=== PATIENT | female | born 1940 | race Caucasian/White ===

== ENCOUNTER 2016-12-21 06:28 | Inpatient (IN) | payer OTHER, BC ==
[2016-11-22 13:44] VITALS: BMI 31.0
--- NOTE | 2016-11-22 14:18 | PAT Medication Instructions ---
Service Date November 22, 2016. Current Home Medication List Aspirin (Aspirin Tab-Chewable *), 81 MG PO 3XWEEK Calcium Carbonate (Tums), 2 TAB PO QPM Cholecalciferol (Vitamin D), 1,000 INTER.UNIT PO QPM Ibuprofen (Advil), 400 MG PO PRN Potassium Chloride Pwd (Klor-Con Pwd), 20 MEQ PO QPM Timolol Maleate (Timolol 0.5% Oph Soln 15 Ml), 1 DROP OPB QAM Triamterene/Hctz (Maxzide 75MG/50MG), 1 TAB PO QPM Medication Instructions For Your Scheduled Surgery - Check with surgeon for instructions: Ibuprofen (Advil), 400 MG PO PRN - Take the following medications the morning of surgery with a sip of water: Timolol Maleate (Timolol 0.5% Oph Soln 15 Ml), 1 DROP OPB QAM - Take the following medications as scheduled the night before surgery: Potassium Chloride Pwd (Klor-Con Pwd), 20 MEQ PO QPM Cholecalciferol (Vitamin D), 1,000 INTER.UNIT PO QPM Calcium Carbonate (Tums), 2 TAB PO QPM Aspirin (Aspirin Tab-Chewable *), 81 MG PO 3XWEEK (okay to continue per surgeon) Triamterene/Hctz (Maxzide 75MG/50MG), 1 TAB PO QPM If you have any questions please call us at [phone] or [phone] or [phone]
--- NOTE | 2016-11-22 14:55 | DIAGNOSTIC IMAGING REPORT ---
CHEST 2 VIEWS ROUTINE CLINICAL HISTORY: pat preoperative evaluation COMPARISON STUDY: 04/22/2011 FINDINGS: The bones soft tissues and hemidiaphragms are normal. The cardiomediastinal silhouette is normal. The lungs are clear. The pulmonary vasculature is normal. IMPRESSION: Negative chest. Electronically signed by: Samson Mcclain M.D. 11/22/2016 2:53 PM Dictated Date/Time: 11/22/2016 2:53 PM
[2016-11-22 15:04] LABS: BASO % 0.9 %; BASO ABS # 0.05 K/uL (0-0.2); COMPLETE YES; EOS % 1.6 %; HEMATOCRIT 43.2 % (37-47); IG% 0.2 %; LYMPH % 31.9 %; LYMPH ABS # 1.82 K/uL (1.2-3.4); MEAN CELL VOLUME 91.3 fL (80-100); MEAN CORPUSCULAR HEMOGLOBIN 30.7 pg (25-34); MEAN CORPUSCULAR HGB CONC 33.6 g/dl (32-36); MONO % 12.3 %; NEUT % 53.1 %; PLATELET COUNT 309 K/uL (130-400); RED BLOOD COUNT 4.73 M/uL (4.2-5.4)
[2016-11-22 15:17] LABS: PARTIAL THROMBOPLASTIN RATIO 1.1; PROTHROMBIN TIME (PATIENT) 10.4 SECONDS (9.0-12.0)
[2016-11-22 15:18] LABS: BLOOD UREA NITROGEN 25 mg/dl (7-18); BUN/CREATININE RATIO 19.4 (10-20); C-REACTIVE PROTEIN < 0.29 mg/dl (0-0.29); CALCIUM 8.7 mg/dl (8.5-10.1); CARBON DIOXIDE 30 mmol/L (21-32); CHLORIDE 102 mmol/L (98-107); GLUCOSE 110 mg/dl (70-99); POTASSIUM 3.3 mmol/L (3.5-5.1); SODIUM 139 mmol/L (136-145)
--- NOTE | 2016-12-14 21:37 | HISTORY & PHYSICAL EXAMINATION ---
DATE OF ADMISSION: 12/21/2016 CHIEF COMPLAINT: Right knee pain. HISTORY OF PRESENT ILLNESS: The patient is a 76-year-old white female who presents for surgical treatment of her right knee. She has a 2-1/2-year history of increasing right knee pain and discomfort. She reports intermittent clicking and locking and occasional giving out on her knee. It can occur spontaneously. She has failed all conservative treatment including various anti-inflammatory medicines. Of note, she had her left knee replaced by Dr. Churchill in 2006 and has done pretty well from this. She did have some problems in the perioperative period. She was frustrated with it. PAST MEDICAL HISTORY: Significant for arthritis. PAST SURGICAL HISTORY: Previous surgeries include: 1. Appendectomy. 2. T&A. 3. Cholecystectomy. 4. Left knee replacement. 5. Cataract surgery. ALLERGIES: IODINE AND BETADINE. CURRENT MEDICINES: Include: 1. Aspirin 81 mg a day. 2. Vitamin D 3 times a week. 3. Potassium. 4. Tums. 5. Diuril. SOCIAL HISTORY: A 76-year-old white female. She is a retired nurse coordinator. She is . Rare alcohol intake. FAMILY HISTORY: Significant for heart disease. REVIEW OF SYSTEMS: Negative for diabetes, neurologic problems, vascular problems, bleeding disorders. Denies any chest pain or shortness of breath. No history of DVT or PE. PHYSICAL EXAMINATION: GENERAL: Reveals a healthy, pleasant elderly female. She looks to be in good health. HEENT: Benign. NECK: Supple. No lymphadenopathy. LUNGS: Clear to auscultation. HEART: Has a regular rate and rhythm. ABDOMEN: Soft, nontender, nondistended. EXTREMITIES: Grossly neurovascularly intact except as follows: Examination of the right knee reveals the patient walks with a slightly antalgic gait. She has got a varus alignment to her knee. Range of motion is 5-125. No instability. X-RAYS: X-rays of the right knee reviewed. It shows advanced right knee DJD. She has got complete loss of her lateral joint space. She has got subchondral sclerosis and osteophytes, particularly on the lateral side of her knee. She has got patellofemoral disease as well. ASSESSMENT: A 76-year-old white female who is 10 years out from left knee replacement with advanced right knee degenerative joint disease. She has failed conservative treatment and would like to have her right knee replaced. PLAN: We will take her to the operating room and do a right total knee replacement. The risks and benefits of this procedure were explained to the patient including but not limited to DVT, PE, , infection, neurological injury, vascular injury, bleeding problem, pain, limited range of motion, stiffness, failure to relieve symptoms, incomplete relief of symptoms, need for further surgery in the future, fracture, leg length inequality, nerve palsy, etc. The patient understands and desires to proceed. Informed consent was obtained. As far as discharge plans, she is planning to be discharged to home using [facility]. Her can assist in her care.
[2016-12-21] VITALS (7 sets, daily range): BP systolic 106–129; BP diastolic 69–83; PULSE 67–78; TEMP 35.9–36.6; O2SAT 94–100; Ht 167.6 cm; Wt 89.0 kg
[~2016-12-21] VITALS: Ht 167.6 cm; Wt 89.0 kg
[~2016-12-21 06:28] MED LIST: ACETAMINOPHEN 500 MG TAB PO SCH; ASPCH81 PO; BUPIVACAINE LIPOSOME 266 MG, BUPIVACAINE/EPINEPHRINE INJ 50 ML, SODIUM CHLORIDE 0.9% PF... INFIL SCH; CALC500C3 PO; CEFAZOLIN 2000 MG/60 ML D5W 60 ML IV SCH; CHOL100010 PO; FAMOTIDINE 20 MG TAB PO SCH; GABAPENTIN 300 MG CAP PO SCH; IBUP-1050 PO; LACTATED RINGER'S 1000ML 1,000 ML IV SCH; METOCLOPRAMIDE HCL 10 MG TAB PO SCH; POTA1POW PO; SCOPOLAMINE 1.5 MG TDSY TD SCH; TMPOPS15 OPB; TRIA75TA53 PO
[2016-12-21] MEDS ORDERED: TRANEXAMIC ACID INJ 1,000 MG in SODIUM CHLORIDE 0.9% 100ML 100 ML IV SCH ×2 (06:30→16:45)
[2016-12-21] MEDS ORDERED: BUPIVACAINE 0.5 % 5 MG/1 ML PF 10ML VIAL ONE (06:33)
[2016-12-21] MEDS ORDERED: BUPIVACAINE 0.25% 30 ML VIAL ONE (06:33)
--- NOTE | 2016-12-21 06:51 | History & Physical Bridge Note ---
H&P Re-Evaluation Bridge Note: I have examined the patient, reviewed the History & Physical and in the interval since the performance of the History & Physical I have noted the following changes of clinical significance: No changes noted
[2016-12-21] MEDS ORDERED: MIDAZOLAM HCL 1 MG/ML 2ML VIAL ONE ×2 (07:14→09:14)
[2016-12-21] MEDS ORDERED: FENTANYL CITRATE INJ 50 MCG/1 ML 2 ML VIAL ONE ×2 (07:15→09:20)
[2016-12-21] MEDS ORDERED: PROPOFOL IV EMULSION 10 MG/ML 20 ML VIAL IV ONE ×2 (07:15→09:39)
[2016-12-21] MEDS ORDERED: ATROPINE SULFATE 0.1 MG/ML 5ML SYR IV PRN (08:15)
[2016-12-21] MEDS ORDERED: ONDANSETRON INJ 2 MG/ML 2 ML VIAL IV PRN ×2 (08:15→11:00)
[2016-12-21] MEDS ORDERED: EpHEDrine SULFATE INJ 50 MG/ML AMP IV PRN (08:15)
[2016-12-21] MEDS ORDERED: BUPIVACAINE/EPINEPHRINE 0.25% 1:200,000 30 ML VIAL ONE (08:50)
[2016-12-21] MEDS ORDERED: BACITRACIN 50000 UNIT VIAL ONE (08:50)
[2016-12-21] MEDS ORDERED: SODIUM CHLORIDE 0.9% PF 50 ML VIAL ONE (08:50)
[2016-12-21] MEDS ORDERED: BUPIVACAINE LIPOSOME 1/3% 266 MG/20 ML VIAL INFIL ONE (08:50)
[2016-12-21] MEDS ORDERED: ONDANSETRON INJ 2 MG/ML 2 ML VIAL ONE (09:39)
[2016-12-21] MEDS ORDERED: EpHEDrine SULFATE INJ 50 MG/ML AMP ONE ×2 (09:45→09:48)
[2016-12-21] MEDS ORDERED: PHENYLEPHRINE HCL INJ 10 MG/ML VIAL ONE (09:48)
--- NOTE | 2016-12-21 10:47 | [facility] Post Operative Brief Note ---
Immediate Operative Summary Operative Date Dec 21, 2016. Pre-Operative Diagnosis Right Knee Advanced Degenerative Joint Disease Post-Operative Diagnosis Right Knee Advanced Degenerative Joint Disease Procedure(s) Performed Right Total Knee Arthoplasty Surgeon Dr. Charles Bulk Sugar Handler Surgeon(s) CHARITO Perez Estimated Blood Loss 50 ml Findings Right Knee DJD Specimens A. Right Knee Bone and Tissue Drains None Anesthesia Spinal + General Complication(s) None Disposition Recovery Room / PACU
[2016-12-21] MEDS ORDERED: ZOLPIDEM TARTRATE 5 MG TAB PO PRN (11:00)
[2016-12-21] MEDS ORDERED: BISACODYL 10 MG SUPP PR PRN (11:00)
[2016-12-21] MEDS ORDERED: HYDROmorphone INJ 0.5 MG/0.5 ML SYR IV PRN (11:00)
[2016-12-21] MEDS ORDERED: TRAMADOL HCL 50 MG TAB PO PRN (11:00)
[2016-12-21] MEDS ORDERED: METOCLOPRAMIDE HCL INJ 5 MG/ML 2 ML VIAL IV PRN (11:00)
[2016-12-21] MEDS ORDERED: MAGNESIUM HYDROXIDE SUSP 30 ML UDC PO PRN (11:00)
--- NOTE | 2016-12-21 11:19 | DIAGNOSTIC IMAGING REPORT ---
RIGHT KNEE 2 VIEWS CLINICAL HISTORY: Degenerative arthritis COMPARISON: None. DISCUSSION: There are postsurgical changes of a total right knee arthroplasty and patellar resurfacing. The femoral and tibial components appear well seated. Overlying skin pa are visualized. There is air within soft tissues consistent with recent surgery. IMPRESSION: Postsurgical changes of a total right knee arthroplasty. Electronically signed by: Jose De Jesus Bartlett M.D. 12/21/2016 11:17 AM Dictated Date/Time: 12/21/2016 11:17 AM
--- NOTE | 2016-12-21 11:32 | OPERATIVE REPORT ---
DATE OF OPERATION: 12/21/2016 SURGEON: Romel Charles MD SENIOR APPLICATION SECURITY CONSULTANT: CHARITO Metcalf PREOPERATIVE DIAGNOSIS: Right knee degenerative joint disease. POSTOPERATIVE DIAGNOSIS: Same. PROCEDURE PERFORMED: Right cemented posterior stabilized total knee arthroplasty. COMPLICATIONS: None. ESTIMATED BLOOD LOSS: 50 mL. FLUID REPLACEMENT: 1000 mL crystalloid fluid replacement. TOURNIQUET TIME: 55 minutes at 300 mmHg. ANESTHESIA: Spinal and subsequent general anesthesia. SPECIMENS: Right knee sent for pathology. OPERATIVE INDICATIONS: The patient is a 76-year-old fairly active female who has had a 2-1/2 to 3 year history of increasing right knee pain and discomfort. She has been through extensive conservative treatment without much relief. She had a left knee replacement in 2006 and done pretty well from this. She elected to proceed with right total knee arthroplasty. OPERATIVE FINDINGS: Operative findings revealed advanced right knee DJD. She had grade 4 [id number] disease in all 3 compartments. She had a valgus alignment to her knee with more extensive disease laterally. She had osteophytes in all 3 compartments. Moderate size effusion. OPERATIVE IMPLANTS: Operative implants consisted of: 1. Biomet Vanguard size 62.5 right posterior stabilized femoral component. 2. Biomet size 67 tibial tray. 3. A 12-mm posterior stabilized polyethylene insert. 4. A 31 x 8 all poly patella. OPERATIVE PROCEDURE: The patient was taken to the operating room, identified and placed on the operating table in the supine position. All contact areas were appropriately padded. IV antibiotics were provided by anesthesia team. A spinal anesthetic and adductor canal block had been provided in the holding area. Perera catheter was placed in sterile fashion. Right thigh tourniquet was then placed and the right lower extremity was then prepped and draped in the usual sterile fashion. The right leg was elevated and exsanguinated with Esmarch and tourniquet was placed at 300 mmHg. An anterior approach to the right knee was then performed through a longitudinal incision centered over the patella. Sharp dissection was carried out through the subcutaneous tissues down to the level of the extensor mechanism. A medial parapatellar arthrotomy incision was made. Some subperiosteal dissection was carried out medially. The fat pad was resected from beneath the patellar tendon. Lateral patellofemoral ligament was released. Patella was everted and knee was flexed. The osteophytes were taken off the distal femur. The ACL and PCL were then released from the distal femur and the tibia subluxated anteriorly. The external tibial alignment jig was then placed in the anterior face of the tibia and adjusted 14 mm medially. Proximal tibial cut was made to remove about 2-3 mm of bone from the medial side. The tibia was sized to a size 67. Of note, the bone was fairly soft. Attention was then drawn to the femur. The distal femur was entered with a sharp drill bit. Intramedullary canal was suctioned. A 5-degree valgus cutting guide was placed and distal femoral cutting block was pinned in place. Distal femoral cut was made to take an additional 3 mm of bone off the distal femur. The knee was then brought out into full extension. I did do a little release of the IT band and the posterolateral capsule to equalize the extension gap. Great care was taken to protect the peroneal nerve at all times. The knee was then flexed again. The sizing guide was placed. The femur was then sized to a size 62.5. We did downsize this slightly. The AP cutting block was pinned parallel to the epicondylar axis, which was 6 degrees of external rotation. The anterior cut, anterior chamfer, posterior cut, and posterior chamfer cuts were made. Box cutting guide was placed and adjusted slightly lateral and the box cut was made. The knee was flexed. The remnants of the medial and lateral menisci were excised. The osteophytes were taken off the posterior aspect of the femur. Trial femoral component was placed. Tibial tray was pinned in maximum external rotation and the drill and stem punch were used to create defect in proximal tibia for the tibial tray. The knee was then trialed and the 12-mm insert fit most appropriately. Attention was then drawn to the patella. The patella was cleaned of all soft tissues. Patella thickness measured 18 mm in thickness and it was cut down to 12. It was sized to a size 31 patella. Lug holes were drilled for the 31 patella. Lateral osteophyte was removed. Patella button was placed. Knee was taken through range of motion and patella tracked nicely with no thumbs test. Attention was then drawn toward placement of permanent components. All trial components were removed. A bone plug was placed in the distal femur to limit blood loss. A double batch of Palacos G cement was mixed. A right size 62.5 posterior stabilized femoral component, 67 tibial tray, a 12-mm posterior stabilized polyethylene insert, and a 31 x 8 all poly patella then cemented in place. The knee was brought out into full extension until cement hardened. A final cement check was then performed. Pericapsular tissues were injected with a total of 100 mL of a combination of 20 mL of Exparel, 30 mL of normal saline, and 50 mL of 0.25% Marcaine with epinephrine. The patient did receive 1 gram of tranexamic acid. The tourniquet was then let down for a tourniquet time of 55 minutes. Hemostasis was assured with use of electrocautery. The extensor mechanism was then closed with a combination of #1 PDS suture and #1 Vicryl suture in a [id number] fashion. Extensor mechanism was checked and found to be intact. Subcutaneous tissues were then closed with 2-0 Dexon suture in a buried interrupted fashion. Skin was closed skin pa. Leg was then cleaned and dried and a sterile dressing of Xeroform, 4 x 4, sterile cast padding and George bandage were applied. The patient then transferred to the recovery room in stable condition. The patient tolerated the procedure well with no complications. All needle and sponge counts were correct at the end of the operation. I attest to the content of the Intraoperative Record and any orders documented therein. Any exception s are noted below.
--- NOTE | 2016-12-21 11:34 | Anesthesiology Progress Note ---
Anesthesia Post Op Note Date & Time Dec 21, 2016 at 11:33 Vital Signs Pain Intensity: 0 Vital Signs Past 12 Hours Date Time Temp Pulse Resp B/P (MAP) Pulse Ox O2 Delivery O2 Flow Rate FiO2 12/21/16 11:22 75 18 96 12/21/16 11:22 75 18 12/21/16 11:21 137/83 12/21/16 11:17 74 18 94 12/21/16 11:17 74 18 12/21/16 11:16 151/80 12/21/16 11:12 77 17 98 12/21/16 11:12 78 17 12/21/16 11:11 137/77 12/21/16 11:08 72 18 99 12/21/16 11:08 72 18 12/21/16 11:06 141/85 12/21/16 11:03 74 18 99 12/21/16 11:03 74 18 12/21/16 11:01 128/74 12/21/16 10:58 77 23 100 12/21/16 10:58 77 23 12/21/16 10:56 130/80 12/21/16 10:54 150/86 12/21/16 10:53 36.0 75 12 150/86 99 Mask 10 12/21/16 10:53 88 16 100 12/21/16 10:53 77 16 12/21/16 07:06 36.6 71 18 111/83 96 Room Air Notes Mental Status: alert / awake / arousable, participated in evaluation Pt Amnestic to Procedure: Yes Nausea / Vomiting: adequately controlled Pain: adequately controlled Airway Patency, RR, SpO2: stable & adequate BP & HR: stable & adequate Hydration State: stable & adequate Neuraxial Anesthesia: was administered, sensory block is resolving Anesthetic Complications: no major complications apparent
[2016-12-21] MEDS: D5W AND 1/2NSS + 20MEQ KCL 1,000 ML IV SCH ×2 (13:11→20:30)
[2016-12-21] MEDS: KETOROLAC TROMETHAMINE 15 MG/ML VIAL IV SCH ×2 (13:45→20:30)
--- NOTE | 2016-12-21 16:02 | PROGRESS NOTE ---
DATE: 12/21/2016 SUBJECTIVE: 76-year-old white female postop from a right knee replacement. She is doing well. She does not have any sensation or pain in either leg yet. Denies any chest pain or shortness of breath. Not feeling dizzy or lightheaded. OBJECTIVE: VITAL SIGNS: Temperature 36.5. Vital signs stable. PHYSICAL EXAMINATION: GENERAL: Reveals a pleasant elderly female. She is sitting up in bed and talking with her . She was clearly dozing off intermittently. LUNGS: Clear to auscultation. HEART: Regular rate and rhythm. ABDOMEN: Soft, nontender, nondistended. EXTREMITIES: Grossly neurovascularly intact except as follows. Examination of the right leg reveals the leg to be well aligned. Dressing is clean, dry and intact. She has no significant sensory or motor function yet. She has brisk refill. X-RAYS: X-rays of the right knee from recovery room were reviewed. It shows a right cemented posterior stabilized total knee arthroplasty. Components looked to be in good position. No signs of problems. ASSESSMENT: 76-year-old white female postop from a right knee replacement, doing well. Pain is controlled. Spinal is still in effect. PLAN: 1. DVT prophylaxis including thigh-high TEDs, SCDs, and aspirin twice a day. 2. PT/OT. Weightbearing as tolerated. Right total knee protocol. 3. Pain control, doing pretty well with current pain regimen. We will obviously have to use additional medicines as the spinal wears off. 4. IV antibiotics x24 hours. 5. Disposition: Plan to discharge to home with some home health once adequately recovered.
[2016-12-21] MEDS: CEFAZOLIN IV 2,000 MG in DEXTROSE 5% 50ML 50 ML IV SCH ×2 (16:51→23:52)
[2016-12-21] MEDS: ACETAMINOPHEN 500 MG TAB PO SCH ×2 (16:53→23:52)
[2016-12-21] MEDS: FERROUS GLUCONATE 324 MG TAB PO SCH (20:26)
[2016-12-21] MEDS: ASPIRIN 325 MG ECTAB PO SCH (20:31)
[2016-12-21] MEDS: DOCUSATE SODIUM 100 MG CAP PO SCH (20:31)
[2016-12-21] MEDS: POTASSIUM CHLORIDE PWD 20 MEQ PACK PO SCH (20:33)
[2016-12-21] MEDS: TRIAMTERENE/HCTZ 37.5/25MG TAB PO SCH (20:34)
[2016-12-21] MEDS: CHOLECALCIFEROL 1000 INTER.UNIT TAB PO SCH (20:37)
[2016-12-21] MEDS: SENNA 8.6 MG TAB PO SCH (20:37)
[2016-12-21] MEDS: CALCIUM CARBONATE 500 MG CHEWABLE PO SCH (20:37)
[2016-12-21] MEDS ORDERED: ULT50X PO (21:34)
[2016-12-21] MEDS ORDERED: FRRG PO (21:34)
[2016-12-21] MEDS ORDERED: ACET-24 PO (21:34)
[2016-12-21] MEDS ORDERED: ASPEC325 PO (21:34)
--- NOTE | 2016-12-21 21:37 | Discharge Instructions ---
Discharge Instructions Date of Service Dec 21, 2016. Admission Reason for Admission: Right Knee Degenerative Joint Disease Discharge Discharge Diagnosis / Problem: Right Knee Replacement Discharge Goals Goal(s): Decrease discomfort, Improve function, Increase independence, Improve disease control, Therapeutic intervention Activity Recommendations Activity Limitations: per Instructions/Follow-up section Weightbearing Status: Right weightbearing . Instructions / Follow-Up Instructions / Follow-Up ACTIVITY RECOMMENDATIONS: Physical Therapy: * You will go to physical therapy three times each week for four to six weeks after your surgery in order to regain your knee range of motion and to retrain your knee to work properly. * It is just as important to make sure you are getting your knee perfectly straight as it is to regain your knee bend. * Taking a pain pill an hour before therapy can help you have a more productive and comfortable therapy session. Home Exercise: * You were shown a series of exercises (heel props, heel slides, etc.) in the hospital. Do these exercises three to four times each day including the exercises you were shown in physical therapy. Walking: * Get up and walk several times each day. For the first four weeks, try not to stand or walk for more than one hour at a time. If you do stand or walk for more than one hour, you will not hurt anything, but your knee and leg will likely swell. * As you feel comfortable, you may change from the walker or crutches to a cane and then to independent walking. MEDICATIONS: New Medicine: * You will likely be taking one or more of these medications: 1. Tramadol - A quick and shorter-acting pain medication. Take one to two tablets every four to six hours to lessen your pain. 2. Iron Sulfate - Take two times each day for the month after surgery to help you replace the blood lost during surgery. 3. Aspirin - Thins your blood to lessen the chance of forming a blood clot. * The most common side effects of pain medicine and iron are nausea and constipation. If nausea or constipation is too much of a problem or if you have any questions about your new medicines or doses, call [facility] at . We will try to help you manage these issues. VERY IMPORTANT TO READ AND REVIEW" Pain: * The immediate post-operative period after knee replacement surgery is often quite painful. * You are given a prescription for pain medicine. You should take it, as directed, when you need it, especially before physical therapy and before going to bed. Pain that interferes with sleep is very common and can last several months. * You will likely need pain medicine for the first four to six weeks. It will not stop all of the pain. The pain will lessen and as you feel better, you may change to milder pain medicine such as Tylenol. * The most common side effects of pain medicine are nausea and constipation, so don't take more than you need. SPECIAL CARE INSTRUCTIONS: TEDs/Elastic Stockings: * The white elastic stockings help limit swelling and prevent blood clots from forming in your legs. The more you wear them, the more they work. * Wear them for six weeks after knee replacement surgery and four weeks after partial knee replacement. Prevention of Infection: * Take antibiotics one hour before any dental cleaning, dental work, urological procedure, gastrointestinal procedure or any invasive surgery in order to prevent your new joint from getting infected. * You may get the antibiotics from the doctor performing the procedure or you may call our office at before and we will call in a prescription to the pharmacy of your choice. Things to Watch For: * Drainage from the incision site that occurs more than one week after your surgery. * Severely increased knee/leg pain or swelling. * Increased redness at the incision site. * Fever above 102 degrees Fahrenheit. * Unusual chest pain or shortness of breath. * Unusual pain or burning with urination. Call [facility] at with any of the above problems or if you have any questions about your medicines or recovery. FOLLOW UP VISIT: Make an appointment to see your doctor for approximately two weeks after surgery for a progress check and staple removal by calling the office at . Current Hospital Diet Patient's current hospital diet: Regular Diet Discharge Diet Recommended Diet: Regular Diet Procedures Procedures Performed: Right Total Knee Arthoplasty Pending Studies Studies pending at discharge: no Medical Emergencies . Who to Call and When: Medical Emergencies: If at any time you feel your situation is an emergency, please call 551 immediately. . Non-Emergent Contact Non-Emergency issues call your: Surgeon . "Provider Documentation" section prepared by Romel Charles. . VTE Core Measure Inpt VTE Proph given/why not?: Other Anticoagulation, T.E.D. Stockings, SCD's
[2016-12-22] MEDS: KETOROLAC TROMETHAMINE 15 MG/ML VIAL IV SCH ×4 (01:46→20:40)
[2016-12-22 03:36] VITALS: BP 110/67; PULSE 73; TEMP 36.6; O2SAT 99
[2016-12-22] MEDS: D5W AND 1/2NSS + 20MEQ KCL 1,000 ML IV SCH (04:49)
[2016-12-22 06:14] LABS: MEAN CELL VOLUME 92.4 fL (80-100); MEAN CORPUSCULAR HEMOGLOBIN 31.5 pg (25-34); MEAN CORPUSCULAR HGB CONC 34.1 g/dl (32-36); MEAN PLATELET VOLUME 9.2 fL (7.4-10.4); PLATELET COUNT 220 K/uL (130-400); RED BLOOD COUNT 3.68 M/uL (4.2-5.4); WHITE BLOOD COUNT 9.85 K/uL (4.8-10.8)
[2016-12-22 06:42] LABS: CALCIUM 8.5 mg/dl (8.5-10.1); CREATININE 0.89 mg/dl (0.60-1.20); POTASSIUM 3.4 mmol/L (3.5-5.1)
--- NOTE | 2016-12-22 07:40 | PROGRESS NOTE ---
DATE: 12/22/2016 DATE: 12/22/2016. SUBJECTIVE: A 76-year-old white female postop day 1 from right knee replacement. She is doing well. Pain is controlled. Denies any chest pain or shortness of breath. Not feeling dizzy or lightheaded. OBJECTIVE: VITAL SIGNS: Temperature 36.6. Vital signs stable. PHYSICAL EXAMINATION: GENERAL: Reveals a pleasant elderly female. She is sitting up in bed and looks pretty comfortable. EXTREMITIES: Examination of the right leg reveals the dressing to be clean, dry and intact. She can dorsiflex and plantarflex her foot appropriately. She is neurologically intact. LABORATORY DATA: Hemoglobin 11.6. Hematocrit 34.0. Electrolytes are stable. ASSESSMENT: A 76-year-old white female postop day 1 from a right knee replacement, doing pretty well. Her pain is controlled. PLAN: 1. DVT prophylaxis including thigh-high TEDs, SCDs, and aspirin twice a day. 2. PT/OT. Weightbearing as tolerated. Right total knee protocol. 3. Pain control. Doing well with current pain regimen. 4. Neurological status. Her nerve function has returned. The spinal has worn off and her nerve function is normal. 5. Disposition. She is planning to be discharged to home with some home health once adequately recovered. 6. Hypokalemia - will supplement K and recheck in am. SEEMA
[2016-12-22] MEDS ORDERED: POTASSIUM CHLORIDE 10 MEQ TABCR PO ONE ×2 (07:45→21:00)
[2016-12-22 07:47] VITALS: PULSE 74; TEMP 36.8; O2SAT 97
--- NOTE | 2016-12-22 08:34 | Anesthesiology Progress Note ---
Anesthesia Post Op Note Date & Time Dec 22, 2016 at 08:33 Vital Signs Pain Intensity: 9.0 Vital Signs Past 12 Hours Date Time Temp Pulse Resp B/P (MAP) Pulse Ox O2 Delivery O2 Flow Rate FiO2 12/22/16 07:47 36.8 74 20 97 Room Air 12/22/16 03:36 36.6 73 16 110/67 (81) 99 Room Air 12/21/16 23:57 Room Air 12/21/16 22:37 36.4 78 16 106/70 (82) 100 Room Air Notes Mental Status: alert / awake / arousable, participated in evaluation Pt Amnestic to Procedure: Yes Nausea / Vomiting: adequately controlled Pain: adequately controlled Airway Patency, RR, SpO2: stable & adequate BP & HR: stable & adequate Hydration State: stable & adequate Anesthetic Complications: no major complications apparent
[2016-12-22] MEDS: ASPIRIN 325 MG ECTAB PO SCH ×2 (08:51→20:42)
[2016-12-22] MEDS: FERROUS GLUCONATE 324 MG TAB PO SCH ×3 (08:51→18:20)
[2016-12-22] MEDS: DOCUSATE SODIUM 100 MG CAP PO SCH ×2 (08:51→20:41)
[2016-12-22] MEDS: TIMOLOL MALEATE 0.5% OP SOLN 5 ML BTL OPB SCH (08:52)
[2016-12-22] MEDS: MULTIVITAMIN TAB PO SCH (08:52)
[2016-12-22] MEDS: ACETAMINOPHEN 500 MG TAB PO SCH ×2 (08:52→15:35)
[2016-12-22] MEDS: PANTOprazole SOD 40 MG TAB PO SCH (08:53)
[2016-12-22 09:45] VITALS: BP 112/72; PULSE 76; O2SAT 96
[2016-12-22 16:02] VITALS: BP 130/78; PULSE 74; TEMP 36.7; O2SAT 97
[2016-12-22] MEDS: TRIAMTERENE/HCTZ 37.5/25MG TAB PO SCH (20:41)
[2016-12-22] MEDS: POTASSIUM CHLORIDE PWD 20 MEQ PACK PO SCH (20:41)
[2016-12-22] MEDS: CALCIUM CARBONATE 500 MG CHEWABLE PO SCH (20:41)
[2016-12-22] MEDS: SENNA 8.6 MG TAB PO SCH ×2 (20:42→20:51)
[2016-12-22] MEDS: CHOLECALCIFEROL 1000 INTER.UNIT TAB PO SCH (20:42)
[2016-12-23 00:06] VITALS: BP 127/90; PULSE 80; TEMP 37; O2SAT 99
[2016-12-23] MEDS: ACETAMINOPHEN 500 MG TAB PO SCH ×2 (00:11→09:23)
[2016-12-23] MEDS: KETOROLAC TROMETHAMINE 15 MG/ML VIAL IV SCH ×2 (02:25→09:29)
[2016-12-23 07:26] VITALS: BP 107/71; PULSE 81; TEMP 36.3; O2SAT 95
[2016-12-23] MEDS: PANTOprazole SOD 40 MG TAB PO SCH (09:00)
[2016-12-23] MEDS: DOCUSATE SODIUM 100 MG CAP PO SCH (09:24)
[2016-12-23] MEDS: FERROUS GLUCONATE 324 MG TAB PO SCH (09:24)
[2016-12-23] MEDS: ASPIRIN 325 MG ECTAB PO SCH (09:24)
[2016-12-23] MEDS: MULTIVITAMIN TAB PO SCH (09:24)
[2016-12-23] MEDS: TIMOLOL MALEATE 0.5% OP SOLN 5 ML BTL OPB SCH (09:25)
[2016-12-23 09:59] VITALS: BP 117/72; PULSE 76; O2SAT 96
--- NOTE | 2016-12-23 10:56 | PROGRESS NOTE ---
DATE: 12/23/2016 DATE: 12/23/2016. SUBJECTIVE: A 76-year-old white female postop day 2 from right knee replacement. She is doing well. Very minimal pain. No chest pain or shortness of breath. Not feeling dizzy or lightheaded. OBJECTIVE: VITAL SIGNS: Temperature 36.3. Vital signs stable. PHYSICAL EXAMINATION: GENERAL: Reveals a pleasant elderly female. She is sitting up in bed and looks comfortable. LUNGS: Clear to auscultation. HEART: Regular rate and rhythm. ABDOMEN: Soft, nontender, nondistended. EXTREMITY EXAMINATION: Grossly neurovascularly intact except as follows: Examination of the right leg reveals the dressing to be clean, dry and intact. Just a spot of bloody drainage. She can dorsiflex and plantarflex her foot appropriately. She is neurologically intact. LABORATORY DATA: Potassium 4.3. ASSESSMENT: A 76-year-old white female postop day 2 from right knee replacement, doing well. Pain is controlled. Potassium is improved. PLAN: 1. DVT prophylaxis including thigh-high TEDs, SCDs, and aspirin twice a day. 2. PT/OT. Weightbearing as tolerated. Right total knee protocol. 3. Pain control. Doing well with current pain regimen. 4. Hypokalemia. Potassium now corrected normal. 5. Disposition. Plan to discharge to home with some home health after therapy today.
[2016-12-23 13:57] VITALS: BP 117/72; PULSE 76; TEMP 36.3; O2SAT 96
--- NOTE | 2016-12-29 16:05 | Discharge Summary ---
Orthopedic Discharge Summary Admission Date/Reason Dec 21, 2016 at 06:40 Right Knee Degenerative Joint Disease. Discharge Date/Disposition Dec 23, 2016 Home with services Diagnosis Principal Diagnosis: RIGHT KNEE DJD Secondary Diagnoses/Problems: ARTHRITIS Procedure(s) Performed RIGHT TKA Medication Reconciliation New Medications: Acetaminophen (Sb Non-Aspirin Extra Stre) 500 Mg Tab 1000 MG PO Q8H for 30 Days, #180 TAB Take 3 times per day to lessen pain. Aspirin (Aspirin) 325 Mg Ectab 325 MG PO BID for 45 Days, #90 Take to prevent blood clots. Ferrous Gluconate (Ferrous Gluconate) 324 Mg Tab 324 MG PO BIDM for 30 Days, #60 TAB Take to resore blood count Tramadol HCl (Tramadol HCl) 50 Mg Tab 50-100 MG PO Q6H PRN for Pain for 30 Days, #60 TAB Take as needed for Pain. Continued Medications: Calcium Carbonate (Tums) 500 Mg Chew 2 TAB PO QPM Cholecalciferol (Vitamin D) 1,000 Inter.unit Tab 1000 INTER.UNIT PO QPM, 0 Refills Ibuprofen (Advil) 200 Mg Tab 400 MG PO PRN, TAB Potassium Chloride Pwd (Klor-Con Pwd) 20 Meq Pack 20 MEQ PO QPM Timolol Maleate (Timolol 0.5% Oph Soln 15 Ml) 15 Ml Soln 1 DROP OPB QAM Triamterene/Hctz (Maxzide 75MG/50MG) Tab 1 TAB PO QPM, TAB Discontinued Medications: Aspirin (Aspirin Tab-Chewable *) 81 Mg Chew 81 MG PO 3XWEEK, 0 Refills Sunday PM Admission Physical Exam As per Admitting History & Physical. Hospital Course CHARLIE WAS ADMITTED ON 12/21/16 AND UNDERWENT TKA. SHE TOLERATED THE PROCEDURE WELL. SHE WAS TRANSFERRED TO THE PACU POST OP AND LATER TO THE ORTHOPEDIC FLOOR FOR FURTHER CARE. SHE WAS GIVEN ANCEF FOR ANTIBIOTIC PROPHYLAXIS. TEDS, SCD'S, AND ASPIRIN FOR DVT PROPHYLAXIS. HER HEMOGLOBIN, HEMATOCRIT, AND VITAL SIGNS WERE MONITORED DURING HER HOSPITAL STAY. SHE DID DEVELOP SOME POST OP ANEMIA BUT DID NOT REQUIRE BLOOD TRANSFUSIONS. THERE WERE NO COMPLICATIONS. SHE DID HAVE SOME HYPOKALEMIA AND WAS GIVEN A POTASSIUM SUPPLEMENT. BY POD #2 SHE WAS TOLERATING A GENERAL DIET. PAIN WAS CONTROLLED WITH ORAL PAIN MEDICINES. SHE WAS PARTICIPATING IN PT. HAD NO S/S OF DVT. ON POD#2 SHE WAS DISCHARGED HOME WITH HOME HEALTH. SHE WAS GIVEN PRINTED DISCHARGE INSTRUCTIONS, INCLUDING PRESCRIPTIONS ABOVE. CONTINUE PT, WBAT CONTINUE [facility]'S FOLLOW UP IN 10-12 DAYS OR SOONER IF THERE ARE PROBLEMS OR CONCERNS. Discharge Instructions Please refer to the electronic Patient Visit Report (Discharge Instructions) for additional information.
== END 2016-12-23 14:20 | disposition home or self-care (01) | DRG 470 ==
LOC: C.ACU 06:28 → C.3E 06:40 → ENRESERV 11:34
PROVIDERS: ADMIT Orthopaedic Surgery Sports Medicine; ATTEND Orthopaedic Surgery Sports Medicine
PROC: 0SRC0J9 Replacement of Right Knee Joint with Synthetic Substitute, Cemented, Open Approach (ICD-10-PCS; principal; 2016-12-21 08:50)
DX: M17.11 Unilateral primary osteoarthritis, right knee (principal); E87.6 Hypokalemia; Z96.652 Presence of left artificial knee joint; Z79.899 Other long term (current) drug therapy; Z79.82 Long term (current) use of aspirin; Z82.49 Family history of ischemic heart disease and other diseases of the circulatory system